=== PATIENT | male | born 1970 | race Caucasian/White ===

== ENCOUNTER 2022-07-05 16:14 | Emergency (ER) | payer OTHER ==
[~2022-07-05] VITALS: Ht 170.2 cm; Wt 97.1 kg
[2022-07-05 19:59] VITALS: BP 124/77
== END 2022-07-05 21:49 | disposition left against medical advice (07) ==
LOC: M ED 16:14
DX: Z53.21 Procedure and treatment not carried out due to patient leaving prior to being seen by health care provider (principal)